=== PATIENT | male | born 2000 | race Two or more races ===

== ENCOUNTER 2023-10-21 20:30 | Emergency (ER) | payer OTHER ==
[~2023-10-21] VITALS: Ht 182.9 cm; Wt 68.0 kg
[2023-10-21 20:43] VITALS: BP 124/74; TEMP 98.7; O2SAT 98
[2023-10-21] MEDS ORDERED: CLOT15CR35 TP (21:00)
== END 2023-10-21 22:39 | disposition home or self-care (01) ==
LOC: ER 20:56
DX: S90.821A Blister (nonthermal), right foot, initial encounter (principal); B35.3 Tinea pedis; H11.32 Conjunctival hemorrhage, left eye; F19.10 Other psychoactive substance abuse, uncomplicated; F17.200 Nicotine dependence, unspecified, uncomplicated; Z88.8 Allergy status to other drugs, medicaments and biological substances; Z60.2 Problems related to living alone; X58.XXXA Exposure to other specified factors, initial encounter; Y93.89 Activity, other specified; Y92.89 Other specified places as the place of occurrence of the external cause; Y99.8 Other external cause status